=== PATIENT | male | born 1955 | race African-American/Black ===

== ENCOUNTER 2016-11-10 22:35 | Inpatient (IN) ==
[2016-11-10] MEDS ORDERED: hydrALAZINE 20 MG/1 ML VIAL IV STA (23:05)
--- NOTE | 2016-11-10 23:10 | Emergency Department Note ---
Arrival - Arrival Chief Complaint: Neuro Stated Complaint: possible stroke ED Nursing Triage Note: C/O Unilateral weakness- Right side and facial droop/ slurred speech. Onset approx 0800 when walking back home after dropping kids off at school. Pt states he was walking around like he was drunk. Denies seeking medical attention until tonight. Pt reports that he was taking blood pressure medication one time, but took himself off of it approx 2 years ago. Right arm 269/147. Left arm 242/149 Mode of Arrival: Wheelchair Limitations: No Limitations Source: Patient Time Seen by Provider: 11/10/16 23:05 - History of Present Illness HPI Narrative: This 60-year-old black male presents with acute onset of right sided weakness associated with unstable gait. Patient states he does have a occipital headache in association with this but no nausea, vomiting, slurring of speech, or visual changes. The patient does have a history of severe hypertension but is failed to take any medication for 2 years. In this regard he does not complain of shortness of breath but does have some chest fullness. Currently he is alert and oriented. Onset (ago): hour(s) (Patient presents 15 hours post onset of symptoms) Allergies/Adverse Reactions: Allergies Allergy/AdvReac Type Severity Reaction Status Date / Time No Known Allergies Allergy Verified 11/10/16 22:38 Home Medications: Home Medications Medication Instructions Recorded Confirmed Type No Known Home Medications [No 11/10/16 11/10/16 History Known Home Medications] Review of System - Review of System 12 point system: reviewed and no additional remarkable complaints except as stated - Review of System Constitutional: Present: as per HPI Gastrointestinal: Present: as per HPI Neurological: Present: as per HPI Medical,Surgical,& Family Hx - Medical History Cardio: History of: Hypertension (stopped taking meds 2 years ago) - Social History Smoking Status: Smoker, status unknown Frequency of Alcohol Use: Frequently Type of Drug Use: None Exam Physical Examination: GENERAL: Obese black male in no acute distress. HEENT: Normocephalic. No trauma. Moist mucous membranes. Slight right facial droop EOMI. PERRLA. ENT NML NECK: Supple. No adenopathy. CARDIAC: Regular. 1/4 shantell, loud p2. Heart rate 88 CHEST: Clear to auscultation. No respiratory distress. O2 sat 99% ABDOMEN: Soft. Nontender. Active bowel sounds. EXTREMITIES: No trauma. Normal ROM. No pedal edema. SKIN: No diaphoresis. No rash. NEURO: Alert. Oriented 3. 3 out of 5 right-sided motor weakness compared to 5 out of 5 left sided strength Vital Signs: Vital Signs Temperature 98.5 F 11/10/16 22:36 Pulse Rate 87 11/10/16 23:11 Respiratory Rate 20 11/10/16 23:11 Blood Pressure 221/146 11/10/16 23:11 O2 Sat by Pulse Oximetry 98 11/10/16 23:11 Course - Reevaluation(s) Reevaluation #1: Advised patient that he obviously would be kept to further evaluate for cerebral vascular accident. - Consultations Consultation #1: Discussed with hospitalist service who will admit for further evaluation treatment. Results - Labs CBC & BMP: 11/10/16 23:00 11/10/16 23:00 Labs: I reviewed the patient's laboratory and noted its gross normalcy - Impressions EKG: Sinus rhythm at 77 with normal IA interval and QRS duration. Left atrial enlargement as well as left ventricular hypertrophy. Nonspecific ST changes with no evidence of acute injury pattern noted. - Diagnostic Findings Procedure: Chest x-ray: image reviewed by me, report reviewed by me (Uncoiling of the aorta are otherwise normal chest), CT: image reviewed by me, report reviewed by me (Head: No acute injury noted cerebral atrophy and microvascular ischemia noted) Disposition Clinical Impression: CVA, Uncontrolled hypertension Case discussed with: patient Disposition: Still a Patient Condition: Guarded Time of Disposition: 23:57
[2016-11-10 23:19] LABS: Basophils # 0.1 10*3/uL (0.0-0.2); Basophils % 0.9 % (0.0-0.8); Eosinophils # 0.2 10*3/uL (0.0-0.87); Eosinophils % 3.7 % (0.00-10.9); Hematocrit 41.7 VOL% (42.0-52.0); Hemoglobin 14.7 GM/DL (14.0-18.0); Immature Granulocytes % 0.2 %; Immature Granulocytes Absolute 0.01 #; Lymphocytes # 2.1 10*3/uL (1.4-4.0); Lymphocytes % 36.2 % (21.2-54.2); Mean Corpuscular HGB Conc 35.3 GM/DL (32-36); Mean Corpuscular Hemoglobin 30 PG (27-34); Mean Corpuscular Volume 86.2 FL (87-102); Mean Platelet Volume 11.6 FL (9.6-12.0); Monocytes # 0.7 10*3/uL (0.11-0.8); Monocytes % 11.7 % (1.7-12.7); Neutrophils # 2.7 10*3/uL (1.4-7.4); Neutrophils % 47.3 % (38.7-73.9); Platelet Count 185 T/CUMM (130-400); Red Blood Count 4.84 MC/CUMM (3.8-5.5); Red Cell Distribution Width 11.9 % (9.3-17.3); White Blood Count 5.7 T/CUMM (4-12)
[2016-11-10 23:29] LABS: INR 1.1; PT Patient Result 11.2 SECS; Partial Thromboplastin Time 27.8 SECS (0-40)
[2016-11-10] MEDS ORDERED: METOPROLOL TARTRATE 5 MG/5 ML VIAL IV SCH (23:30)
[2016-11-10] MEDS ORDERED: hydrALAZINE 20 MG/1 ML VIAL ONE (23:34)
--- NOTE | 2016-11-10 23:43 | EKG Report ---
Stationary ECG Study [facility] ER Test Date: 11/10/2016 11:41:10 PM Pat Name: GEETHA ISLAS Department: Room: Gender: M Order Analyst: : 1955 Requested by: Ayan Payne Order Number: [id number] Reading MD: PURVI MONROY Intervals [place] Rate: 77 P: 62 DC: 189 QRS: -11 QRSD: 87 T: 63 QT: 402 QTc: 433 Interpretive Statements SINUS RHYTHM LEFT ATRIAL ENLARGEMENT EARLY REPOLARIZATION POSSIBLE LEFT VENTRICULAR HYPERTROPHY Electronically Signed On 11-11-16 14:29:17 CDT by PURVI MONROY [email or web address]
[2016-11-10 23:44] LABS: Alanine Aminotransferase 26 U/L (16-61); Albumin 3.6 G/DL (3.4-5.0); Alkaline Phosphatase 70 U/L (45-117); Aspartate Amino Transferase 24 U/L (0-37); Blood Urea Nitrogen 8 MG/DL (7-18); Calcium 8.9 MG/DL (8.5-10.1); Glucose 111 MG/DL (74-106); Osmolality,Calculated 268.1 MOS/KG (273-304); Potassium 3.7 MMOL/L (3.5-5.1); Sodium 135 MMOL/L (136-145); Total Protein 8.1 G/DL (6.4-8.3)
[2016-11-11 00:30] LABS: Troponin I Only < 0.015 NG/ML (0.00-0.045)
[2016-11-11] MEDS ORDERED: METOPROLOL TARTRATE 5 MG/5 ML VIAL IV ONE (00:37)
[2016-11-11] MEDS ORDERED: LABETALOL 20 MG/4 ML SYRINGE IV PRN (00:59)
[2016-11-11] MEDS ORDERED: LORazepam 2 MG/1 ML VIAL IV PRN (01:17)
--- NOTE | 2016-11-11 01:22 | Hospitalist History & Physical ---
Assessment and Plan (1) Acute ischemic stroke Status: Acute Current Visit: Yes (2) Right sided weakness Status: Acute Current Visit: Yes (3) Slurred speech Status: Acute Current Visit: Yes (4) Uncontrolled hypertension Status: Acute Assessment and plan: We will do workup on this patient for stroke. Patient will be admitted to a monitored bed treat his blood pressure as needed with labetalol. Get MRI a 2D echo and carotid ultrasound. We will also consult neurology and put him on a full dose aspirin at this time. Reevaluate patient in the morning and adjust plans appropriate Current Visit: Yes History of Present Illness Chief complaint: Right-sided weakness History of present illness: Mr. Willis is a 60 year old male past medical history significant for hypertension presents with right-sided weakness. Patient reports that he woke up with the symptoms at 8:00 this morning. He was able to walk his niece's children to school but he was walking around like he was drunk. Patient reports that he noticed his speech was slurred today 2. There is question about whether he has trouble swallowing but he was able to swallow 2 hotdogs without any problem. Patient's right-sided weakness involving his upper and lower extremity. I was consulted to admit the patient for suspected stroke. I am admitting him through the emergency room. Home Medications Medication Instructions Recorded Confirmed Type No Known Home Medications [No 11/10/16 11/10/16 History Known Home Medications] Allergies Allergy/AdvReac Type Severity Reaction Status Date / Time No Known Allergies Allergy Verified 11/10/16 22:38 Medical,Surgical,& Family Hx - Medical History Cardio: History of: Hypertension (stopped taking meds 2 years ago) - Surgical History Orthopedic Surgeries: Surgical HX of;: Orthopedic Surgery - Family History Family History: Reports;: Family Diabetes, Family Heart Disease - Social History Smoking Status: Light tobacco smoker Frequency of Alcohol Use: Frequently Type of Drug Use: None 12 point system: reviewed and no additional remarkable complaints except as stated Exam - Constitutional Vitals: Period Temp Pulse Resp BP Sys/Harris Pulse Ox Last 24 Hr 76-84 18-22 166-177/94-94 97-100 General appearance: normal weight - Eye Eye exam: Present: EOMI Pupils: Present: GINA - ENT ENT exam: Present: normal exam - Neck Neck exam: Present: normal inspection - Respiratory Respiratory exam: Present: clear to auscultation bilaterally - Cardiovascular Cardiovascular exam: Present: regular rate and rhythm - GI/Abdominal GI/Abdominal exam: Present: normal bowel sounds - Extremities Exam Extremities exam: Present: normal inspection - Back Exam Back exam: Present: normal inspection - Neurological Exam Neurological exam: Present: alert, other (She is weak with hand thermocouple tester and motion on the right side. Patient has trouble moving his right lower extremity. There is no apparent weakness on the left side. Patient's tongue gravitates to the left. Patient extraocular movements are intact.) - Psychiatric Psychiatric exam: Present: anxious - Skin Skin exam: Present: normal color Results - Labs CBC & BMP: 11/10/16 23:00 11/10/16 23:00 Quality Measures - Stroke Onset of Symptoms Date: 11/10/16 Onset of Symptoms Time: 08:00
[2016-11-11 02:52] LABS: Apearance,Urine CLEAR (Clear); Bilirubin,Urine Negative (Negative); Blood, Urine Negative (Negative); Glucose,Urine (UA) Negative (Negative); Ketones,Urine Negative (Negative); Mucus,Urine Occasional /LPF (Occasional); Nitrite,Urine Negative (Negative); Protein,Urine Negative; Urine Color Yellow (Yellow); Urine Specific Gravity 1.009 (1.001-1.035); Urine Urobilinogen < 2.0 EU/DL (0.2-1.0); WBC,Urine <1 /HPF (0-6)
[2016-11-11 02:54] LABS: Barbiturates Screen,Urine Negative (Negative); Benzodiazepines Screen,Urine Negative (Negative); Cannabinoid Screen,Urine Positive (Negative); Opiate Screen,Urine Negative (Negative); Phencyclidine Screen,Urine Negative (Negative)
[2016-11-11] MEDS: ACETAMINOPHEN 325 MG TABLET PO PRN ×3 (03:19→21:05)
--- NOTE | 2016-11-11 05:51 | CT Report ---
Referring physician: Ayan Alaniz Exam: CT brain without contrast Date: November 10, 2016 Comparison: None Reason: Mental status changes The patient was an Emergency Department patient on November 10, 2016. Preliminary report was provided by [facility]. Technique: Axial images of the head were obtained without the use of contrast. Total DLP was 1073.1 mGy*cm. Findings: There are scattered vague areas of low attenuation within the cerebral white matter bilaterally. This is nonspecific but likely represents chronic microvascular ischemic change. No hydrocephalus or midline shift is present. There is no evidence of recent intracranial hemorrhage, abnormal mass effect or an acute infarction. A 1.3 cm lucency is seen at the right frontal aspect of the calvarium on image 26. This could represent a surgical defect such as a elly hole or other benign process such as a congenital variant. An aggressive process is felt less likely, but follow-up would be helpful to confirm benignity. The mastoid air cells and visualized paranasal sinuses are clear. Note is made of prominent calcified plaque at the intracranial internal carotid arteries. Impression: 1. No acute intracranial process is identified. 2. Probable chronic microvascular ischemic change. 3. There is a 1.3 cm osseous lucency at the right frontal aspect of the calvarium. This is favored to represent a benign process such as a elly hole, but follow-up would be helpful to confirm a benign process, especially if there is no history of surgery. The CT exam was performed using one or more of the following dose reduction techniques: Automated exposure control and adjustment of the mA and/or kV according to patient size. PROCEDURE INTERPRETED AT [facility] DEPARTMENT OF RADIOLOGY Final Report Signed by: Dr. Lazara Monzon
--- NOTE | 2016-11-11 06:55 | XRay Report ---
Referring Physician: Ayan Alaniz Exam: XR chest 1V portable Date: November 10, 2016 at 11:19 PM Reason: Altered mental status Comparison: None Findings: The cardiac silhouette is normal in size. There is minimal atelectasis within the right lower lung zone. No pneumothorax or pleural effusion is identified. No acute osseous process is seen. Impression: Minimal atelectasis within the right lower lung zone. PROCEDURE INTERPRETED AT [facility] DEPARTMENT OF RADIOLOGY Final Report Signed by: Dr. Lazara Monzon
--- NOTE | 2016-11-11 08:58 | Ultrasound Report ---
US carotid duplex BI Indication: Weakness. Comparison: None. Technique: Multiple longitudinal and transverse real-time sonographic images of the bilateral carotid arterial systems are obtained with grayscale, spectral, and color Doppler analysis. Findings: Peak systolic velocities within the right CCA, proximal ICA, and distal ICA are 65, 31, and 65 cm/s respectively. Peak systolic velocities within the left CCA, proximal ICA, and distal ICA are 110, 36, and 68 cm/s respectively. ICA/CCA ratios on the right and left are 1.0 and 0.6 respectively. Antegrade flow demonstrated within the bilateral vertebral arteries. Grayscale imaging demonstrates minimal bilateral atherosclerotic plaque. IMPRESSION: No convincing sonographic evidence of significant (50% or greater) narrowing of either cervical internal carotid artery. NASCET criteria utilized. PROCEDURE INTERPRETED AT [facility] DEPARTMENT OF RADIOLOGY Final Report Signed by: Dr Roverto Lindsay
[2016-11-11] MEDS: ENOXAPARIN 40 MG/0.4 ML SYRINGE SUBCUT SCH (09:58)
[2016-11-11] MEDS: THIAMINE 100 MG TABLET PO SCH (09:59)
[2016-11-11] MEDS: ASPIRIN 325 MG TABLET PO SCH (09:59)
[2016-11-11] MEDS: MULTIVITAMIN (CENTRUM) TABLET PO SCH (09:59)
[2016-11-11] MEDS: FOLIC ACID 1 MG TABLET PO SCH (09:59)
[2016-11-11 10:36] LABS: Basophils # 0.1 10*3/uL (0.0-0.2); Basophils % 0.9 % (0.0-0.8); Eosinophils # 0.2 10*3/uL (0.0-0.87); Eosinophils % 3.3 % (0.00-10.9); Hematocrit 41.6 VOL% (42.0-52.0); Hemoglobin 14.6 GM/DL (14.0-18.0); Immature Granulocytes % 0.4 %; Immature Granulocytes Absolute 0.02 #; Lymphocytes # 1.9 10*3/uL (1.4-4.0); Lymphocytes % 33.8 % (21.2-54.2); Mean Corpuscular HGB Conc 35.1 GM/DL (32-36); Mean Corpuscular Hemoglobin 30 PG (27-34); Mean Corpuscular Volume 85.2 FL (87-102); Mean Platelet Volume 12.2 FL (9.6-12.0); Monocytes # 0.6 10*3/uL (0.11-0.8); Neutrophils # 2.8 10*3/uL (1.4-7.4); Neutrophils % 50.6 % (38.7-73.9); Platelet Count 204 T/CUMM (130-400); Red Blood Count 4.88 MC/CUMM (3.8-5.5); White Blood Count 5.5 T/CUMM (4-12)
[2016-11-11 11:04] LABS: Calcium 9.2 MG/DL (8.5-10.1); Osmolality,Calculated 271.1 MOS/KG (273-304); Potassium 3.9 MMOL/L (3.5-5.1)
--- NOTE | 2016-11-11 12:55 | Event Note ---
Is my first encounter this patient was admitted earlier this morning by 1 of my colleagues. See him. 89 gentleman presented to the hospital with new right-sided weakness patient presented to the hospital in the evening, the symptoms started around 8:00 in the morning. He has an ischemic stroke echocardiogram is being done as I evaluate the patient is also sloughing of the speech. On assessment he still does have significant muscle motor skills on the right side including both the arm on the leg. 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 Stroke workup including consultation with neurology has already been initiated. Seemed to be done at this time I will see this patient in the morning tomorrow. No charge for this assessment
--- NOTE | 2016-11-11 13:48 | Magnetic Resonance Report ---
MR head/brain wo con Indication: Weakness Comparison: None Technique: Multiplanar magnetic resonance imaging was performed of the brain without the use of intravenous contrast. Findings: Moderate periventricular and subcortical T2 hyperintensity noted which is nonspecific but consistent with chronic microvascular ischemic change. Age-related volume loss present. Restricted diffusion is demonstrated just to the left of midline within the estephania consistent with acute infarct. The midline structures are nondisplaced. There is no evidence of hydrocephalus. No evidence of acute intracranial hemorrhage. The included orbits and their contents appear within normal limits. T2 major vascular flow voids are maintained. IMPRESSION: Restricted diffusion is demonstrated just to the left of midline within the estephania consistent with acute infarct. Probable chronic microvascular ischemic change and age-related volume loss. PROCEDURE INTERPRETED AT [facility] DEPARTMENT OF RADIOLOGY Final Report Signed by: Dr Roverto Lindsay
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
[2016-11-11] MEDS: ROSUVASTATIN 20 MG TABLET PO SCH (21:03)
--- NOTE | 2016-11-11 23:16 | ECHO Report ---
Artemio Willis Exam Date: 11/11/2016 10:02 Referring Physician: Technologist: Gracy Stearns Age: 60 Ht (in): 67 Wt (lb): 224 Gender: M Exam Location: [facility] Echo Indications: acute ischemic stroke, Rt. sided weakness, HTN BP: 133 / 79 HR: 90 Rhythm: Sinus Technical Quality: IMPRESSIONS Normal left ventricular size, with mild concentric hypertrophy, with normal systolic function. Estimated left ventricular ejection fraction 60%. Grade 1 diastolic dysfunction. Mildly thickened mitral valve with trace mitral regurgitation. Mild aortic valve sclerosis without stenosis or regurgitation. MEASUREMENTS (Male / Female) Normal Values 2D ECHO LV Diastolic Diameter PLAX 3.2 cm 4.2 - 5.9 / 3.9 - 5.3 cm LV Systolic Diameter PLAX 2.2 cm LV Fractional Shortening PLAX 30.0 % IVS Diastolic Thickness 1.8 cm 0.6 - 1.0 / 0.6 - 0.9 cm LVPW Diastolic Thickness 1.5 cm 0.6 - 1.0 / 0.6 - 0.9 cm RV Internal Dim ED PLAX 3.0 cm Aortic Root Diameter 3.0 cm LA Systolic Diameter LX 3.4 cm 3.0 - 4.0 / 2.7 - 3.8 cm FINDINGS Left Ventricle Normal left ventricular size, with mild concentric hypertrophy, with normal systolic function. Estimated left ventricular ejection fraction 60%. Grade 1 diastolic dysfunction. Right Ventricle Normal right ventricular size. Right Atrium Normal right atrial size. Left Atrium Normal left atrial size. Mitral Valve Mildly thickened mitral valve with trace mitral regurgitation. Aortic Valve Mild aortic valve sclerosis without stenosis or regurgitation. Tricuspid Valve Morphologically normal tricuspid valve. Insufficient data to estimate pulmonary artery systolic pressure. Pulmonic Valve Morphologically normal pulmonic valve. Pericardium No pericardial effusion. Aorta Normal size aortic root and proximal ascending aorta. Joseph Echols (Electronically Signed) Final Date: 11 Nov 2016 23:15
[2016-11-12] MEDS: ENOXAPARIN 40 MG/0.4 ML SYRINGE SUBCUT SCH (10:41)
[2016-11-12] MEDS: ASPIRIN 325 MG TABLET PO SCH (10:42)
[2016-11-12] MEDS: FOLIC ACID 1 MG TABLET PO SCH (10:42)
[2016-11-12] MEDS: THIAMINE 100 MG TABLET PO SCH (10:42)
[2016-11-12] MEDS: MULTIVITAMIN (CENTRUM) TABLET PO SCH (10:42)
--- NOTE | 2016-11-12 11:41 | Discharge Summary ---
Specialty Discharge - Follow Up or Referrals Discharge Plan - Discharge Data Disposition: Disch To Home/Self Care Condition at Discharge: Stable Discharge Diet: heart healthy Activity: resume usual activities as tolerated Hygiene: may shower, other (Assistance as needed) Driving: other (Advised not to drive) Contact your physician if you experience:: fever over 101, Difficulty voiding, Nausea/Vomiting, Shortness of breath, pain uncontrolled by pain medications - Discharge Medications New Aspirin Tab 325 mg PO DAILY #30 tablet Folic Acid Tab 1 mg PO DAILY #30 tablet Rosuvastatin [Crestor] 40 mg PO BEDTIME #30 tablet Thiamine Tab [Vitamin B1 Tab] 100 mg PO DAILY #30 tablet Multivitamin (Centrum) [Centrum Tab] 1 tablet PO DAILY #30 tablet - Follow Up or Referral - Forms/Instructions Instructions: Ischemic Stroke (GEN), Self Care Measures After a Stroke (DC), Ischemic Stroke, [employer] Worker (GEN) Exam - Constitutional Vitals: Period Temp Pulse Resp BP Sys/Harris Pulse Ox Last 24 Hr 97.5 F-98.8 F 69-83 18-20 140-205/80-109 96-100 General appearance: over weight - Head Head exam: Present: normal inspection - Eye Eye exam: Present: EOMI Pupils: Present: GINA - ENT ENT exam: Present: normal exam, normal oropharynx - Neck Neck exam: Present: normal inspection, other (Supple neck no JVD midline trachea ) - Respiratory Respiratory exam: Present: clear to auscultation bilaterally - Cardiovascular Cardiovascular exam: Present: regular rate and rhythm, other (Sinus control) - GI/Abdominal GI/Abdominal exam: Present: normal bowel sounds, soft - Extremities Exam Extremities exam: Present: other (Right-sided weakness patient has an acute left pontine stroke) - Back Exam Back exam: Present: normal inspection - Neurological Exam Neurological exam: Present: alert, oriented X3 - Psychiatric Psychiatric exam: Present: normal affect, normal mood - Skin Skin exam: Present: normal color, warm, dry DS: Provider Date of admission: 11/10/16 23:47 Primary care physician: . No PCP Attending physician on admission: Tim Neal MD Consults: 11/11/16 00:59 Consult to Case Mgmt/Social Srvs [CONS] Routine Reason for Case Mgmt/Social Srvs: Discharge Planning Consult to Occupational Therapy [CONS] Routine Reason for Occupational Therapy: Evaluate and Treat Consult Comment: Stroke Consult to Physical Therapy [CONS] Routine Reason for Physical Therapy: Evaluate and Treat Consult Comment: stroke 11/11/16 01:04 Consult to Physician [CONS] Routine Comment: Consulting Provider: Gabriel Gonzalez Consult to Specialist Group: Neurology When should Consulting Provider be notified: In am Person Notified: FRANCES Date Notified: 11/11/16 Time Notified: 09:52 11/12/16 10:39 Consult to Case Mgmt/Social Srvs [CONS] Routine Reason for Case Mgmt/Social Srvs: Home Health Consult Comment: HH with Physical Therapy also Discharging clinician: Mark Brito MD
--- NOTE | 2016-11-12 11:44 | Hospitalist Progress Note ---
Assessment and Plan (1) Acute ischemic stroke Status: Acute Assessment and plan: MRI describes a left pontine stroke. Patient does have significant motor deficits on the right side. He will need physical therapy. Is able to eat and swallow without any problems. Hopefully can get in physical therapy as an outpatient and get him home; if this can be arranged today with an send him home today Current Visit: Yes (2) Right sided weakness Status: Acute Assessment and plan: As above. There is no description of cerebral stroke however the presence of pontine stroke on the left is noted most likely affecting tracts coming from above. Current Visit: Yes (3) Slurred speech Status: Acute Assessment and plan: Patient will need outpatient speech therapy follow-ups. This is also the recommendation from neurology Current Visit: Yes (4) Uncontrolled hypertension Status: Acute Current Visit: Yes Hospitalist: Subjective Interval history: Patient has been seen interviewed and examined chart has been reviewed. The gentleman came to the hospital with acute stroke syndrome MRI of the brain shows an acute pontine infarct. Patient is quite ataxic but he thinks can stand up. He will need some more physical therapy. He was slated for discharge today however without any insurance, I cannot get home health for him for home based physical therapy. And is unable to be discharged to swing bed here for similar reasons. I am working with social media community manager to try to see if we can get him some services for rehab. Is getting physical therapy in the hospital. Exam - Constitutional Vitals: Period Temp Pulse Resp BP Sys/Harris Pulse Ox Last 24 Hr 97.5 F-98.8 F 69-83 18-20 140-205/80-109 96-100 General appearance: over weight - Head Head exam: Present: normocephalic - Eye Eye exam: Present: EOMI Pupils: Present: GINA - ENT ENT exam: Present: normal oropharynx, other (Patient does have some sufficient gag reflex but he does have dysarthria and slow overexpression. Very incoordinated.) - Neck Neck exam: Present: normal inspection - Respiratory Respiratory exam: Present: clear to auscultation bilaterally - Cardiovascular Cardiovascular exam: Present: regular rate and rhythm - GI/Abdominal GI/Abdominal exam: Present: normal bowel sounds, soft - Extremities Exam Extremities exam: Present: other (Right-sided weakness is noted. Incoordination of both arm and leg on the right side is also noted. There physical deficiency seemed to suggest inclusion of higher center stroke other than what is described on MRI.) - Neurological Exam Neurological exam: Present: alert, oriented X3, other (Acute stroke was described above) - Psychiatric Psychiatric exam: Present: normal affect, normal mood - Skin Skin exam: Present: normal color, warm, dry Results - Labs CBC & BMP: 11/11/16 10:06 11/11/16 10:06 Lab Results: I have reviewed the past 24 hour labs Quality Measures - Stroke Onset of Symptoms Date: 11/10/16 Onset of Symptoms Time: 08:00 Presenting Symptoms: Right hemiparesis Specialty Discharge - Follow Up or Referrals
--- NOTE | 2016-11-12 15:36 | Neurology Progress Note ---
Neurology - PN : Subjective Interval history: Pt seems to be doing ok. No new problems reported. Exam (Progress Note) - Constitutional Vitals: Period Temp Pulse Resp BP Sys/Harris Pulse Ox Last 24 Hr 97.5 F-98.8 F 69-83 18-20 140-205/82-109 96-100 Exam: GENERAL: Patient is in no acute distress. NECK: Neck is supple. There is no JVD. No carotid bruits present. No thyroid masses. CVS: First and second heart sounds are normal. There is no S3 present. Regular rate and rhythm. RESPIRATORY: Lungs are clear to auscultation without any rales or rhonchi. ABDOMEN: Soft and non-tender. Bowel sounds are present. There is no hepatosplenomegaly. EXT: There is no palpable edema. Peripheral pulses are present. Skin: No rashes Central Nervous system: General: Alert, awake and Oriented x 3 Speech: Fluent but dysarthric Comprehension: Intact and normal Facial expressions: Normal Cranial Nerves: CN1/Olfactory: Normal CN II/ Optic: Normal, Visual Berry unreliable CN III, and : GINA & EOMI CN V: Normal & intact CN VII: Right central facial weakness CNVIII: Normal CN XI/X/XI/XII: Intact and Normal Motor: Bulk and Tone is normal. Strength in the right 3-4/5 Strength in the left 5/5 Sensory: Grossly intact for all the modalities of PP, LT and temp sense Reflexes: 1+ and symmetrical Cerebellar function: Normal finger to nose and heel to benítez testing in the left and could not doing the right. Toes: Equivocal Gait: Not tested at this time however he reported that he is walking with the help Results - Labs CBC & BMP: 11/11/16 10:06 11/11/16 10:06 Assessment and Plan (1) Acute CVA (cerebrovascular accident) Status: Acute Assessment and plan: Continue aspirin a day Outpatient ST, PT and OT ok to go home from neuro stand point Sign off. Please call PRN. Current Visit: Yes Quality Measures - Stroke Onset of Symptoms Date: 11/10/16 Onset of Symptoms Time: 08:00 Presenting Symptoms: Right hemiparesis Specialty Discharge - Follow Up or Referrals
[2016-11-12] MEDS: ROSUVASTATIN 20 MG TABLET PO SCH (22:53)
[2016-11-13] MEDS: MULTIVITAMIN (CENTRUM) TABLET PO SCH (09:55)
[2016-11-13] MEDS: THIAMINE 100 MG TABLET PO SCH (09:55)
[2016-11-13] MEDS: ENOXAPARIN 40 MG/0.4 ML SYRINGE SUBCUT SCH (09:55)
[2016-11-13] MEDS: ASPIRIN 325 MG TABLET PO SCH (09:55)
[2016-11-13] MEDS: FOLIC ACID 1 MG TABLET PO SCH (09:55)
[2016-11-13] MEDS ORDERED: POLYVINYL ALCOHOL 1.4% OPH SOLN 15 ML BOTTLE BOTH EYES PRN (09:57)
[2016-11-13 16:22] VITALS: BP 158/114
== END 2016-11-13 16:33 | disposition home health service (06) | DRG 65 ==
LOC: N.ED 22:35 → SUATTDRO 23:47 → N.EDINP 23:47 → N.5E 11-11 01:21
PROVIDERS: ADMIT Internal Medicine; ATTEND Internal Medicine Infectious Disease